=== PATIENT | female | born 1955 | race Caucasian/White ===

== ENCOUNTER → 2019-12-14 11:24 | Outpatient (CLI) | payer MEDICARE, SELFPAY ==
--- NOTE | ~2019-12-14 | XR_ITS ---
XR humerus RT, XR shoulder RT min 2V 12/14/2019 12:09 Indication: Shoulder pain radiating to the arm Procedure: 5 views right shoulder and 2 views right humerus Comparison: No prior studies for comparison. Findings: No fracture, subluxation or dislocation. No significant degenerative change. The shoulder a nd right elbow are anatomic alignment. Impression: 1: No acute bone or joint abnormality. Reviewed, dictated and finalized at location A. Impression: 1: No acute bone or joint abnormality. Impression: 1: No acute bone or joint abnormality.
== END ==
DX: M25.511 Pain in right shoulder (principal)
CPT/HCPCS: 73030; 73060

== ENCOUNTER → 2022-06-22 15:23 | Outpatient (CLI) | payer MEDICARE, SELFPAY ==
--- NOTE | ~2022-06-22 | XR_ITS ---
EXAM: XR knee RT 2V, XR knee LT 2V DATE: 06/22/2022 15:57 HISTORY: Right knee pain . COMPARISON: None available. FINDINGS: Decreased mineralization. No fracture or dislocation. No lytic or blastic lesion. Severe b ilateral medial joint space narrowing. Tricompartmental osteophytosis, severe in the medial and marcus lofemoral compartments. No erosion or periosteal change. Soft tissues within normal limits. IMPRESSION: Severe bilateral knee osteoarthritis. Reviewed, dictated and finalized at location K. WEB USER INTERFACE DEVELOPER IMPRESSION: Severe bilateral knee osteoarthritis.
== END ==
PROVIDERS: PCP Internal Medicine; Visit Provider Nurse Practitioner Family
DX: M25.561 Pain in right knee (principal); M25.562 Pain in left knee; M17.0 Bilateral primary osteoarthritis of knee
CPT/HCPCS: 73560

== ENCOUNTER 2023-11-15 15:22 | Emergency (ER) | payer MEDICARE, SELFPAY ==
[2023-11-15] VITALS (19 sets, daily range): BP systolic 107–136; BP diastolic 66–91; PULSE 79–93; RESP 13–25; TEMP 36.8; O2SAT 95–100
--- NOTE | ~2023-11-15 | XR_ITS ---
EXAMINATION: XR chest 2V 11/15/2023 16:33 INDICATION: Shortness of breath PROCEDURE: 2 view chest COMPARISON: No prior studies for comparison. FINDINGS: The lungs are clear. The cardiomediastinal silhouette is within normal limits. There are no pleural effusions. There is no pneumothorax suspected. IMPRESSION: 1: NO ACUTE CARDIOPULMONARY DISEASE. Reviewed, dictated and finalized at location B.
--- NOTE | 2023-11-15 15:25 | ECG_ITS ---
SEE SCANNED COPY FOR CONFIRMED REPORT MTDD
--- NOTE | 2023-11-15 16:53 | ED.GENADULT ---
HPI - General Adult General Chief complaint: Shortness of Breath/Dyspnea <Vianca Figueroa November, FARM MANAGEMENT ADVISER - Last Filed: 11/24/23 20:49> Stated complaint: SHORTNESS OF BREATH XWEEKS <Vianca Figueroa November, FARM MANAGEMENT ADVISER - Last Filed: 11/24/23 20:49> Time Seen by Provider: 11/15/23 16:54 <Vianca Figueroa November, FARM MANAGEMENT ADVISER - Last Filed: 11/24/23 20:49> Focused HPI: Brandi Gonzalez is a 68 y/o female who presents with reports of having increased SOB that started a couple weeks ago, she states that she tries to use the Inhaler but it doesn't seem to help and she has to sit and wait for 5 minutes to catch her breath. 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 Not on any anticoagulants. GENERAL: Well-appearing, well-nourished, and in no acute distress. HEAD: Normocephalic, atraumatic. CHEST: Clear to auscultation. ?No respiratory distress. HEART: Regular rate and rhythm.? NEURO: ?Alert and oriented x3. Patient screened in triage and initial orders placed.? ?Additional care and disposition to be based upon?diagnostic testing and treatment. <Vianca Figueroa November, FARM MANAGEMENT ADVISER - Last Filed: 11/24/23 20:49> History of Present Illness HPI narrative: 68-year-old female with a reported history of CAD, 3 MIs, asthma, hypertension and hyperlipidemia presents to the emergency department for exertional shortness of breath for the past few weeks. States she came to the emergency department today because ?she could not breathe?. States her shortness breath is worse when she ambulates for long time and goes upstairs. She denies concurrent chest pain because she she states ?I take medication for that?. States that she does not take her isosorbide she would have chest pain. She reports swelling to her lower extremities that is unchanged from baseline. Patient denies a cough but family member at bedside states she has noticed some coughing recently from the patient. Patient denies abdominal pain, nausea vomiting, fever, congestion. States she has been taking her medications as prescribed including 40 mg of Lasix daily. Patient is unable to tell me if she has orthopnea and she states ?I never lay flat?. <Iza Godfrey PA-C - Last Filed: 11/16/23 00:16> Related Data Allergies/adverse reactions: Allergies Allergy/AdvReac Type Severity Reaction Status Date / Time No Known Allergies Allergy Unknown Unverified 09/01/17 13:53 <Vianca Lopez APRN - Last Filed: 11/24/23 20:49> Review of Systems Review of Systems: CONSTITUTIONAL: Denies fever, chills, or sweats. EYES: Denies visual changes, redness, or discharge. ENT: Denies rhinorrhea, congestion, sore throat, or otalgia. CARDIOVASCULAR: See HPI RESPIRATORY: See HPI GASTROINTESTINAL: Denies abdominal pain, nausea, vomiting, or diarrhea. GENITOURINARY: Denies dysuria or hematuria. SKIN: Denies rash or itching. MUSCULOSKELETAL: Denies back pain, joint pain, or myalgia. NEUROLOGIC: Denies headache, numbness, or weakness. PSYCHIATRIC: Denies anxiety or depression. <Iza Godfrey PA-C - Last Filed: 11/16/23 00:16> PMFSH Family History Family History: Family History Sibling Family history of diabetes mellitus in first degree relative Father Family history of heart disease in male family member before age 55 Other Diabetes mellitus Family history of malignant neoplasm <Vianca Lopez APRN - Last Filed: 11/24/23 20:49> Social History Social History: Social History Smoking status: Former smoker Alcohol intake: never <Vianca Lopez APRN - Last Filed: 11/24/23 20:49> Exam Narrative: GENERAL: Well-appearing, well-nourished, and in no acute distress. HE
[2023-11-15 19:00] LABS: Basophils Absolute Auto 0.1 K/mm3 (0.0-0.1); Basophils Percent Auto 0.5 % (0.2-1.2); Eosinophils Absolute Auto 0.1 K/mm3 (0-0.3); Eosinophils Percent Auto 1.5 % (0-4.4); Hematocrit 37.8 % (37.0-47.0); Immature Granulocyte Absolute 0.04 K/mm3 (0.00-0.031); Immature Granulocyte Percent A 0.4 % (0-0.5); Lymphocytes Absolute Auto 2.82 K/mm3 (0.9-3.2); Lymphocytes Percent Auto 30.6 % (18.3-44.2); Mean Corpuscular HGB Conc 31.7 g/dl (32-36); Mean Corpuscular Hemoglobin 28.6 pg (26-34); Mean Platelet Volume 10.1 fl (7.4-10.4); Monocytes Absolute Auto 0.7 K/mm3 (0.1-0.6); Monocytes Percent Auto 7.8 % (2.6-8.5); Neutrophils Absolute Auto 5.5 K/mm3 (1.3-6.7); Neutrophils Percent Auto 59.2 % (45.5-73.1); Platelet Count Result 204 k/mm3 (150-375); White Blood Count 9.2 K/mm3 (4.5-10.0)
[2023-11-15 19:12] LABS: Prothrombin Time 13.3 Seconds (11.1-14.7)
[2023-11-15 19:13] LABS: Partial Thromboplastin Time 28.3 Seconds (22.3-36.8)
[2023-11-15 19:22] LABS: Alanine Aminotransferase 22 U/L (6-35); Albumin Level 4.2 g/dL (3.5-5.1); Alkaline Phosphatase 60 U/L (38-126); Anion Gap 9 mmol/L (4-12); Aspartate Amino Transferase 23 U/L (14-36); Bilirubin,Total 0.6 mg/dL (0.2-1.3); Blood Urea Nitrogen 18 mg/dL (7-17); Calcium 9.2 mg/dL (8.4-10.2); Carbon Dioxide 27 mmol/L (22-30); Chloride 98 mmol/L (98-107); Estimated CRCL calculation 76 ml/min; Estimated Glomerular Filt Rate > 60; Glucose 211 mg/dL (65-110); Potassium 3.8 mmol/L (3.4-5.0); Sodium 134 mmol/L (137-145)
[2023-11-15 19:25] LABS: Troponin I 0.029 ng/mL (0.000-0.034)
[2023-11-15] MEDS: IPRATROPIUM 0.5 MG/ALBUTEROL SULFATE 2.5 MG AMPUL.NEB 3 ML INHALATION (22:36)
[2023-11-15] MEDS: FUROSEMIDE INJ 40 MG/4 ML VIAL IV PUSH (23:11)
[2023-11-15 23:24] LABS: D Dimer 0.65 ug/mL (<0.48)
[2023-11-15 23:41] LABS: NT Pro B Type Natriuretic Pept 429 pg/mL (19.9-100)
[2023-11-15 23:47] LABS: Influenza A QL RT-PCR Negative (Negative); Influenza B QL RT-PCR Negative (Negative); RSV RNA, RT-PCR Negative (Negative); SARS-CoV-2 RNA PCR Negative (Negative)
[2023-11-16] MEDS: predniSONE 20 MG TABLET 60 MG PO (00:32)
== END 2023-11-16 00:40 | disposition home or self-care (01) ==
PROVIDERS: Emergency Medicine; Nurse Practitioner Family; Emergency Provider Physician Assistant; PCP Internal Medicine
DX: R06.00 Dyspnea, unspecified (principal); R60.0 Localized edema; Z20.822 Contact with and (suspected) exposure to COVID-19; J45.909 Unspecified asthma, uncomplicated; I25.10 Atherosclerotic heart disease of native coronary artery without angina pectoris; I25.2 Old myocardial infarction; I10 Essential (primary) hypertension; E78.5 Hyperlipidemia, unspecified; Z87.891 Personal history of nicotine dependence; I44.4 Left anterior fascicular block
CPT/HCPCS: 36415; 71046; 80053; 83880; 84484; 85025; 85380; 85610; 85730; 87637; 93005; 94640; 96374; 99284; J1940; J7512

== ENCOUNTER 2024-03-06 11:00 | Outpatient (CLI) | payer MEDICARE, SELFPAY ==
--- NOTE | ~2024-03-06 | XR_ITS ---
3 VIEWS LUMBAR SPINE Ordering provider: Dorys Feldman, FOLDER TAPER OPERATOR-C History: . No injury low back pain . Comparison: None. FINDINGS: VERTEBRAL BODIES: No visible fracture or subluxation. Degenerative changes of the spine. DISK SPACES: Narrowing of the disc L3-L4, L4-L5 and L5-S1. SOFT TISSUES: Aortic calcification. IMPRESSION: No acute osseous abnormality lumbar spine. Multilevel degenerative disc disease. Reviewed, dictated and finalized at location A.
== END 2024-03-06 11:01 ==
PROVIDERS: PCP Internal Medicine; Visit Provider Nurse Practitioner Family
DX: M54.59 Other low back pain (principal); M51.36 Other intervertebral disc degeneration, lumbar region
CPT/HCPCS: 72100

== ENCOUNTER 2024-06-21 12:46 | Outpatient (CLI) | payer MEDICARE, SELFPAY ==
--- NOTE | ~2024-06-21 | MR_ITS ---
MRI of the lumbar spine Clinical History: Back pain Technique: Axial T2-weighted images, and sagittal T1-weighted, T2-weighted, and T2 fat-sat images wer e acquired. Findings: There is no fracture or subluxation of the lumbar spine. Vertebral bodies maintain normal h eight and line. No suspicious bone marrow signal abnormality seen. At L1-L2, there is no disc bulge or herniation. There is moderate to advanced facet arthropathy. No c entral canal stenosis or neural foraminal narrowing. At L2-L3, there is no significant disc bulge or herniation. There is moderate to advanced facet joint hypertrophy. No central canal stenosis or neural foraminal narrowing. At L3-L4, there is moderate to advanced degenerative disc narrowing. Diffuse disc bulge and advanced facet arthropathy result in moderate spinal canal stenosis/thecal sac compression. There is mild bila teral neural foraminal narrowing. At L4-L5, there is moderate to advanced degenerative disc narrowing. There is mild diffuse disc bulge with moderate facet arthropathy. No bong central canal stenosis. There is moderate bilateral neural foraminal narrowing. At L5-S1, there is degenerative disc narrowing with diffuse disc bulge and advanced facet arthropathy . There is moderate to severe spinal canal stenosis/thecal sac compression. There is severe right alfa ral foraminal narrowing. There is mild to moderate left neural foraminal narrowing. Paravertebral soft tissues are unremarkable. Impression: Moderate to advanced degenerative spondylosis at L3-L4 and L5-S1. Moderate degenerative spondylosis at L4-L5. Reviewed, dictated and finalized at [facility]. CLERK Impression: Moderate to advanced degenerative spondylosis at L3-L4 and L5-S1. Moderate degenerative spondylosis at L4-L5.
== END 2024-06-21 12:47 | disposition home or self-care (01) ==
LOC: MICIMG 12:48
PROVIDERS: PCP Nurse Practitioner Family; Visit Provider Nurse Practitioner Family
DX: M47.816 Spondylosis without myelopathy or radiculopathy, lumbar region (principal); M47.817 Spondylosis without myelopathy or radiculopathy, lumbosacral region
CPT/HCPCS: 72148